=== PATIENT | female | born 2000 | race Two or more races ===

== ENCOUNTER 2021-12-28 03:55 | Emergency (ER) | payer OTHER ==
[~2021-12-28] VITALS: Ht 165.1 cm; Wt 52.6 kg
[2021-12-28] MEDS ORDERED: VENTOLIN HFA18 GM (04:17)
[2021-12-28] MEDS ORDERED: ZYNCOF 20-400120 ML PO (05:48)
[2021-12-28] MEDS ORDERED: XOPENEX HFA15 GM IH (05:49)
== END 2021-12-28 06:08 ==
LOC: ER 03:55
DX: U07.1 COVID-19 (principal); R06.02 Shortness of breath